=== PATIENT | female | born 1990 | race African-American/Black ===

== ENCOUNTER 2017-02-23 09:06 | Emergency (ER) | payer OTHER ==
[~2017-02-23] VITALS: Ht 162.6 cm; Wt 49.5 kg
[~2017-02-23 09:06] MED LIST: IBUP-1542 PO; PHEN-538 PO
[2017-02-23 09:09] VITALS: Ht 162.6 cm; Wt 49.5 kg
--- NOTE | 2017-02-23 10:00 | ERD ---
ER Documentation Chief Complaint Date/Time DATE: 02/23/17 TIME: 09:59 Chief Complaint DYSURIA SINCE YESTERDAY HPI 26-year-old female otherwise healthy presents with painful urination, urgency and intermittent blood in her urine since yesterday. Patient reports some urgency and frequency associated as well. She has not had any fevers, chills, pain, nausea, vomiting or abdominal pain. ROS All systems reviewed and are negative except as per history of present illness. Medications Home Meds Active Scripts Phenazopyridine Hcl* (Pyridium*) 100 Mg Tab, 100 MG PO TID Y for URINARY PAIN, # 8 TAB Prov:TAINA POWER PA-C 02/23/17 Nitrofurantoin Monohyd Macrocr* (Macrobid*) 100 Mg Capsr, 100 MG PO BID for 7 Days, CAP Prov:TAINA POWER PA-C 02/23/17 Phenazopyridine Hcl* (Pyridium*) 200 Mg Tab, 200 MG PO TID Y for URINARY PAIN, # 6 TAB Prov:ESTEBAN GARZA NP 05/07/16 Ibuprofen* (Motrin*) 600 Mg Tab, 600 MG PO Q6H Y for PAIN AND OR ELEVATED TEMP, #30 TAB Prov:ESTEBAN GARZA NP 05/07/16 Reported Medications [none] Unknown Strength No Conflict Check 05/07/16 Allergies Allergies: Coded Allergies: No Known Drug Allergies (Verified Allergy, Unknown, 11/20/13) PMhx/Soc History of Surgery: No Anesthesia Reaction: No Hx Neurological Disorder: No Hx Respiratory Disorders: No Hx Cardiac Disorders: No Hx Psychiatric Problems: No Hx Miscellaneous Medical Probl: No Hx Alcohol Use: No Hx Substance Use: No Hx Tobacco Use: No Physical Exam Vitals Vital Signs Date Time Temp Pulse Resp B/P Pulse Ox O2 Delivery O2 Flow Rate FiO2 02/23/17 09:09 98.1 78 16 106/58 99 Physical Exam General: Well-developed, well-nourished. The patient appears in no acute distress. HEENT: Head is normocephalic, atraumatic. No scleral icterus. Neck: Supple. Nontender. Lungs: Clear to auscultation. Normal air movement. Heart: Regular rate and rhythm. S1 and S2 are normal. No murmurs, gallops, or rubs. Abdomen: Soft, nontender, nondistended. Bowel sounds are normoactive. Extremities: No clubbing or cyanosis. Normal pulses. Moving extremities x 4. No weakness. Neurologic: Alert and oriented 3. No focal deficits. Skin: Normal turgor. No rash or lesions. Results 24 hrs Laboratory Tests Test 02/23/17 09:59 Urine Color GIGI Urine Clarity TURBID Urine pH 6.0 Urine Specific [place] 1.021 Urine Ketones NEGATIVEmg/dL Urine Nitrite NEGATIVEmg/dL Urine Bilirubin NEGATIVEmg/dL Urine Urobilinogen NEGATIVEmg/dL Urine Leukocyte Esterase 3+Melissa/ul Urine Microscopic RBC > 182/HPF Urine Microscopic WBC > 182/HPF Urine Squamous Epithelial Cells FEW/HPF Urine Bacteria FEW/HPF Urine Hemoglobin 3+mg/dL Urine Glucose NEGATIVEmg/dL Urine Total Protein 2+mg/dl Current Medications Medications (Trade) Dose Ordered Sig/Earl Route PRN Reason Start Time Stop Time Status Last Admin Dose Admin Nitrofurantoin Macrocrystals (Macrobid) 100 mg ONCE ONCE PO 02/23/17 11:00 02/23/17 11:01 Urine negative Procedures/MDM 26-year-old female presents with symptoms of a urinary tract infection, patient presents with intermittent bleeding likely consistent with hemorrhagic cystitis. She has not had any systemic complaints, she is nontoxic appearing without any history of fevers, flank pain or nausea vomiting to indicate pyelonephritis. Patient symptoms will be treated with Macrobid as well as Pyridium. She is to recheck her urine again with her primary care physician in 1 week. Departure Diagnosis: Primary Impression: UTI (urinary tract infection) Condition: TAINA Robbins PA-C Feb 23, 2017 10:00
[2017-02-23 10:37] LABS: ADD UMIC YES; UR ASCORBIC ACID 40 mg/dL (NEGATIVE); UR BACTERIA FEW /HPF (NONE SEEN); UR BILIRUBIN (Dip) NEGATIVE (NEGATIVE); UR BLOOD (Dip) 3+ mg/dL (NEGATIVE); UR CLARITY TURBID (CLEAR); UR COLOR AMBER (YELLOW); UR GLUCOSE (Dip) NEGATIVE (NEGATIVE); UR KETONES (Dip) NEGATIVE (NEGATIVE); UR LEUKOCYTE ESTERASE (Dip) 3+ Leu/ul (NEGATIVE); UR NITRITE (Dip) NEGATIVE (NEGATIVE); UR NONSQUAMOUS EPITHELIAL CELL 7 /HPF (NONE SEEN); UR RBC > 182 /HPF (0-5); UR SPECIFIC GRAVITY (Dip) 1.021 (1.003-1.030); UR SQUAMOUS EPITHELIAL CELL FEW /HPF (FEW); UR TOTAL PROTEIN (Dip) 2+ mg/dl (NEGATIVE); UR UROBILINOGEN (Dip) NEGATIVE (NEGATIVE); UR WBC CLUMPS MANY /HPF (NONE SEEN)
[2017-02-23] MEDS ORDERED: PHEN-537 PO (10:44)
[2017-02-23] MEDS ORDERED: NITR-58 PO (10:44)
[2017-02-23] MEDS ORDERED: NITROFURANTOIN (SR) 100 MG CAP PO ONE (11:00)
== END 2017-02-23 10:59 | disposition home or self-care (01) ==
LOC: FTE 09:06
DX: N39.0 Urinary tract infection, site not specified (principal)
CPT/HCPCS: 81001; 99283

== ENCOUNTER 2018-02-10 13:22 | Emergency (ER) | END 2018-02-10 14:26 | disposition home or self-care (01) ==